=== PATIENT | male | born 1980 | race Caucasian/White ===

== ENCOUNTER 2021-01-31 18:21 | Inpatient (IN) | payer MEDICARE, MEDICAID ==
[~2021-01-31] VITALS: Ht 180.3 cm; Wt 95.0 kg
[2021-01-31] MEDS ORDERED: IBUP-1506 PO (22:56)
[2021-01-31] MEDS ORDERED: HALO5TAB2 PO (22:56)
[2021-01-31] MEDS ORDERED: BENZ1TAB10 PO (22:56)
[2021-01-31] MEDS ORDERED: HALOPERIDOL 5 MG TABLET PO PRN (23:15)
[2021-01-31] MEDS ORDERED: PNEUMOCOCCAL VACCINE POLYVALENT 0.5 ML VIAL [PPSV23] IM. ONE (23:45)
[2021-02-01 00:12] VITALS: BP 127/80
[2021-02-01] MEDS ORDERED: MAGNESIUM HYDROXIDE SUSPENSION 30 ML UDCUP PO PRN (07:15)
[2021-02-01] MEDS ORDERED: GuaiFENesin/D-METHORPHAN [SUGAR-FREE] 200-20MG/10 ML SYRUP UDCUP PO PRN (07:15)
[2021-02-01] MEDS ORDERED: DOCUSATE SODIUM 100 MG CAPSULE PO PRN (07:15)
[2021-02-01] MEDS ORDERED: ALBUTEROL SULFATE HFA 90 MCG/PUFF 8 GM INHALER IH PRN (07:15)
[2021-02-01] MEDS ORDERED: PETROLATUM,WHITE 28 GM JELLY TP PRN (07:15)
[2021-02-01] MEDS ORDERED: MAG HYDROX/AL HYDROX/SIMETH ES 30 ML SUSPENSION UDCUP PO PRN (07:15)
[2021-02-01] MEDS ORDERED: ONDANSETRON HCL 4 MG TABLET PO PRN (07:15)
[2021-02-01] MEDS ORDERED: ACETAMINOPHEN 325 MG TABLET PO PRN (07:15)
[2021-02-01] MEDS ORDERED: LOPERAMIDE HCL 2 MG CAPSULE PO PRN (07:15)
[2021-02-01] MEDS ORDERED: NICOTINE 14 MG/24 HOUR PATCH TD PRN (07:15)
[2021-02-01] MEDS ORDERED: CloNIDine HCL 0.1 MG TABLET PO PRN (07:15)
[2021-02-01] MEDS ORDERED: IBUPROFEN 400 MG TABLET PO PRN (07:15)
[2021-02-01 09:02] VITALS: BP 126/78
[2021-02-01] MEDS: HALOPERIDOL 5 MG TABLET PO SCH (16:19)
[2021-02-01] MEDS: BENZTROPINE MESYLATE 1 MG TABLET PO SCH (16:19)
[2021-02-01 16:28] VITALS: BP 126/71
[2021-02-01] MEDS: LORazepam 2 MG TABLET PO PRN (16:48)
[2021-02-01] MEDS: ZOLPIDEM TARTRATE 10 MG TABLET PO PRN (20:59)
[2021-02-02 00:46] VITALS: BP 128/70
[2021-02-02 08:24] VITALS: BP 121/60
[2021-02-02] MEDS: HALOPERIDOL 5 MG TABLET PO SCH ×2 (08:55→17:03)
[2021-02-02] MEDS: BENZTROPINE MESYLATE 1 MG TABLET PO SCH ×2 (08:55→17:03)
[2021-02-02 16:34] VITALS: BP 119/65
[2021-02-03 00:30] VITALS: BP 122/75
[2021-02-03] MEDS: BENZTROPINE MESYLATE 1 MG TABLET PO SCH ×2 (09:10→16:48)
[2021-02-03] MEDS: HALOPERIDOL 5 MG TABLET PO SCH (09:10)
[2021-02-03] MEDS: LORazepam 2 MG TABLET PO PRN ×2 (09:10→16:48)
[2021-02-03] MEDS: HALOPERIDOL 10 MG TABLET PO SCH (16:48)
[2021-02-03] MEDS: ZOLPIDEM TARTRATE 10 MG TABLET PO PRN (22:04)
[2021-02-04 00:24] VITALS: BP 119/73
[2021-02-04] MEDS: BENZTROPINE MESYLATE 1 MG TABLET PO SCH (09:00)
[2021-02-04] MEDS: HALOPERIDOL 10 MG TABLET PO SCH (09:00)
[2021-02-04] MEDS ORDERED: HALO10 PO (10:53)
== END 2021-02-04 13:00 | disposition home or self-care (01) | DRG 885 ==
LOC: B2S 23:16
PROVIDERS: ADMIT Psychiatry & Neurology Child & Adolescent Psychiatry; ATTEND Psychiatry & Neurology Child & Adolescent Psychiatry
DX: F20.9 Schizophrenia, unspecified (principal); R45.851 Suicidal ideations; F10.10 Alcohol abuse, uncomplicated; F17.210 Nicotine dependence, cigarettes, uncomplicated; I10 Essential (primary) hypertension; F32.9 Major depressive disorder, single episode, unspecified; R10.13 Epigastric pain; F19.10 Other psychoactive substance abuse, uncomplicated; Z91.5 Personal history of self-harm; Z28.21 Immunization not carried out because of patient refusal; Z79.899 Other long term (current) drug therapy
CPT/HCPCS: 87081; Z7610